=== PATIENT | female | born 1960 | race Caucasian/White ===

== ENCOUNTER 2018-01-29 01:26 | Inpatient (IN) | payer BC ==
[2018-01-29] MEDS ORDERED: hydrALAZINE 20 MG/ML VIAL ONE (02:29)
[2018-01-29] MEDS ORDERED: Morphine 4 MG/ML VIAL ONE (02:49)
[2018-01-29 03:11] LABS: PTT 27.3 SEC (22.9-36.1); Prothrombin Time 13.1 SEC (12.0-14.7)
[2018-01-29] MEDS ORDERED: HYDROcodone/Acetaminophen 5/325 mg Tablet ONE (03:23)
[2018-01-29 03:30] LABS: CKMB 5.7 ng/mL (0-6.6); Troponin I Less than 0.010 ng/mL (< 0.028)
[2018-01-29] MEDS ORDERED: Ondansetron HCl/PF 4 MG/2 ML Vial IVP PRN (06:08)
[2018-01-29] MEDS ORDERED: Ondansetron ODT 4 MG TAB SL PRN (06:08)
[2018-01-29] MEDS ORDERED: methylPREDNISolone Sod Succ/PF 125 MG/2 ML VIAL IVP SCH (08:15)
[2018-01-29] MEDS ORDERED: predniSONE 5 MG TAB PER TUBE SCH (08:15)
[2018-01-29] MEDS ORDERED: Albuterol Sulfate 2.5 mg/3 ml Neb NEB PRN (10:15)
[2018-01-29] MEDS ORDERED: Non-Formulary Item 1 EACH (Naproxen [Naproxen] 250 MG) PO PRN (10:23)
[2018-01-29] MEDS ORDERED: Naproxen 500 MG TAB PER TUBE PRN (10:37)
[2018-01-29] MEDS ORDERED: Pantoprazole 40 MG VIAL IVP SCH (10:45)
[2018-01-29 10:56] LABS: #Basophils 0.1 thou/uL (0.0-0.2); #Lymphocytes 0.2 thou/uL (1.20-3.40); #Monocytes 0.2 thou/uL (0.11-0.59); #Neutrophils 13.2 thou/uL (1.40-6.50); %Basophils 0.4 % (0.0-1.0); %Eosinophils 0.1 % (0.0-10.0); %Lymphocytes 1.3 % (21.0-51.0); %Monocytes 1.4 % (0.0-10.0); %Neutrophils 96.8 % (42.0-75.0); Hemoglobin 8.6 g/dL (12.0-16.0); Mean Corpuscular HGB CONC 31.9 g/dL (32.0-36.0); Mean Corpuscular Hemoglobin 27.8 pg (27.0-31.0); Mean Corpuscular Volume 86.9 fl (81.0-99.0); Mean Platelet Volume 6.4 fL (7.4-10.4); Platelet Count 397 thou/uL (130-400); RBC Distribution Width 16.8 % (11.5-14.5); Red Blood Cell (RBC) Count 3.09 mill/uL (4.20-5.40); White Blood Cell (WBC) Count 13.7 thou/uL (4.8-10.8)
[2018-01-29 11:27] LABS: ALT (SGPT) 19 U/L (8-55); AST (SGOT) 32 U/L (5-34); Albumin 3.7 g/dL (3.5-5.0); Alkaline Phosphatase 81 U/L (40-150); Anion Gap 14 mmol/L (10-20); BUN (Urea Nitrogen) 15 mg/dL (9.8-20.1); Bilirubin, Total 0.8 mg/dL (0.2-1.2); Calc. Creatinine Clearance 0 mL/min (70-130); Calcium 9.3 mg/dL (7.8-10.44); Carbon Dioxide 25 mmol/L (22-29); Chloride 94 mmol/L (98-107); Estimated GFR-MDRD Greater than 90; Globulin 2.4 g/dL (2.4-3.5); Glucose 61 mg/dL (70-105); Potassium 3.4 mmol/L (3.5-5.1); Protein, Total 6.1 g/dL (6.0-8.3); Sodium 130 mmol/L (136-145)
[2018-01-29] MEDS: Sodium Chloride 0.9% 1,000 ML IV SCH (11:50)
[2018-01-29 17:12] VITALS: BMI 14.5
[2018-01-29] MEDS: Mometasone/Formoterol 120 PUFF INHALER INH SCH (18:48)
[2018-01-29] MEDS ORDERED: Non-Formulary Item 1 EACH (Arginine/Ascorbate Sod/Vite Ac [Arginaid Powder] 1 PACKET) PER TUBE SCH (21:00)
[2018-01-29] MEDS ORDERED: Non-Formulary Item 1 EACH (Budesonide-Formoterol [Symbicort 160-4.5] 1 PUFF) INH SCH (21:00)
[2018-01-29] MEDS: Gabapentin 100 MG CAP FS SCH (21:20)
[2018-01-29] MEDS: Calcium Carbonate + Vit D 1 TAB PER TUBE SCH (21:20)
[2018-01-29] MEDS: Pantoprazole 40 MG VIAL IVP SCH (21:20)
[2018-01-30 04:27] LABS: Hemoglobin 8.3 g/dL (12.0-16.0)
[2018-01-30] MEDS: Sodium Chloride 0.9% 1,000 ML IV SCH ×3 (05:57→17:55)
[2018-01-30] MEDS: Levothyroxine Sodium 100 MCG TAB PER TUBE SCH (06:08)
[2018-01-30] MEDS: Arformoterol 15 MCG/2 ML NEB NEB SCH (06:26)
[2018-01-30] MEDS: Mometasone/Formoterol 120 PUFF INHALER INH SCH ×2 (06:29→18:08)
--- NOTE | 2018-01-30 07:38 | CON ---
DATE OF CONSULTATION: 01/29/2018 REASON FOR CONSULTATION: Anemia. HISTORY OF PRESENT ILLNESS: Ms. Briseno is a pleasant, 57-year-old female, who was very frail, she do es have PEG in. She was last admitted to this hospital last August, but she has been in the emergen cy room several times since then. She has a history of having a PEG tube in secondary to throat canc er and radiation stricture. She has had a history of COPD and chronic hyponatremia and anemia of chr onic disease. Baseline hemoglobin runs around 9-10, it was 9.9 in November. Apparently in the past eral days, she has been going to various hospitals with weakness and fatigue, and reportedly was foun d to have a hemoglobin of around 7.5 at [facility] in [place]. She is also a Hemoccu lt positive patient that she has been seeing some blood from her PEG tube at times mainly this has be en dark. She does take iron. Labs indicating hemoglobin 7.5 on 01/28/2018, white count 8.5, platele t count of 332, reports that her occult blood stool was positive as well. BNP was 1327. Comprehensi ve metabolic profile was otherwise normal except for that her BUN was 12 and creatinine was 0.3. Tro ponin T on 01/28/2018, was 23. Lipase was 84. D-dimer is 228. Presently here today, the patient conley s had no bleeding, no melena, no vomiting. There has been no blood from her feeding tube. Her hemog lobin here was 8.6. PAST MEDICAL HISTORY: Osteoporosis, COPD, hypothyroidism, throat cancer, chronic anemia. It is uncl ear if she has a coronary artery disease. She had a troponin that was elevated outside facility. Sh mima has an elevated BNP, which indicated may be she has a component of heart failure as well. She has had previous known anemia and has had endoscopies with Dr. Choi at the [facility] in 12/2016. Colonoscopy showed diverticulosis. EGD was unsuccessful. She has a very tight strictu re in the upper esophagus, and her stomach could not be visualized. ALLERGIES: LEVAQUIN. MEDICATIONS: Prednisone, Protonix or Prevacid, she is not sure, which she is on, gabapentin and lev othyroxine and citalopram. She denies taking any NSAIDs. Naprosyn. PHYSICAL EXAMINATION: GENERAL: She is resting comfortably in bed. VITAL SIGNS: Her pulse is 118, temperature is 97, pulse 18, blood pressure 165/95. LUNGS: Decreased breath sounds at bases. CARDIOVASCULAR: Regular rate and rhythm without clicks or murmurs. ABDOMEN: Soft, nontender. PEG tube site is warm and dry with no signs of active bleeding. LABORATORY DATA: White count was 13.7, hemoglobin 8.6, platelet count 397. Lipase is 203. Troponin was less than 0.01. CK-MB was 56. Sodium 130, potassium 3.4, BUN and creatinine are 15 and 0.49. It seems that she has not been transfused, it is unclear if she was transfused at outside facility. ASSESSMENT: 1. Chronic anemia, no signs of acute bleeding. 2. Slight drop in hemoglobin from baseline. She reports seeing dark-colored material in her gastric tube at times; however, she is on iron to make sure what to make of that. She does take PPI daily. She is on prednisone. She has risk factors for ulcer, were unable to reach her stomach with previou s known stricture in her esophagus and inability to complete an EGD last year. She is up-to-date on colon cancer screening and had only diverticulosis where she no need to repeat that at this time. RECOMMENDATIONS: 1. Monitor H&H. 2. Protonix 40 mg daily. 3. If she is stable from a cardiovascular standpoint tomorrow, we can consider an EGD and reevaluate whether we can take a look at her stomach or not. She does take Naprosyn. 4. I would also discontinue her NSAIDs, and NSAID with prednisone is probably not a good combination with increased risk of ulcer in this patient.
[2018-01-30] MEDS ORDERED: Levothyroxine Sodium 50 MCG TAB PER TUBE SCH (09:00)
[2018-01-30] MEDS ORDERED: Arformoterol 15 MCG/2 ML NEB NEB SCH (09:00)
[2018-01-30] MEDS: Nystatin Powder 15 GM BOT TOP SCH ×2 (09:00→20:46)
[2018-01-30] MEDS ORDERED: Non-Formulary Item 1 EACH (Prednisone [Prednisone] 10 MG) PER TUBE SCH (09:00)
[2018-01-30] MEDS ORDERED: Hydrocortisone Sod Succ/PF 100 mg/2 ml Vial ONE (09:19)
[2018-01-30] MEDS ORDERED: Morphine 4 MG/ML VIAL ONE (09:30)
[2018-01-30] MEDS ORDERED: Midazolam HCl 2 mg/2 ml Vial ONE (10:02)
--- NOTE | 2018-01-30 11:34 | OP ---
DATE OF PROCEDURE: 01/30/2018 SURGEON: Vazquez Ervin M.D. PREOPERATIVE DIAGNOSES: 1. Concern for possible gastrointestinal blood loss with some coffee-ground material from her PEG tu be and drop in hemoglobin 8.6 and stable today at 8.3. 2. Recent colonoscopy last year, nondiagnostic: 3. History of esophageal stricture. 4. History of trismus related to previous radiation therapy for throat cancer. The patient reports she was unable to get a bite block and to have an EGD at last attempt to dilate her esophageal strict ure by Dr. Choi. POSTOPERATIVE DIAGNOSES: 1. The patient cannot open her mouth wide enough to get a bite block in. We did use a syringe to do this, but still cannot open her mouth wide enough to get an EGD scope down. Therefore, we used a br onchoscope to perform a limited upper endoscopy. Her esophagus showed a stricture in the proximal es ophagus, although visualization is poor with the bronchoscope and cannot rule out malignancy, but it does appear benign. There is no bleeding sites in the esophagus. The proximal stomach could be reac hed, but the distal stomach could not. 2. At this point in time, the patient's PEG was removed. We performed a gastroscopy with the bronch oscope through her PEG tube tract. There was no blood in the stomach. Visualization was limited donta ewhat by the fact that there was no irrigation, it was difficult to control insufflation with this br onchoscope. This was the best we could do, however. 3. 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 I suspect this i s the source of her chronic anemia. Unfortunately, we cannot offer therapeutics through this broncho scope if the patient were to have a serious hemorrhage. 4. Prominent ampulla biopsied. 5. If the patient would have a serious hemorrhage, would consider intubation, although she is at hig h risk for airway complications as she has severe COPD and oxygen dependent. She would very likely r un the risk of being stuck on a ventilator, requiring tracheostomy and prolonged ICU stay. For this reason, we did not proceed down that path. RECOMMENDATIONS: 1. Continue IV PPI. 2. Avoid NSAIDs and anticoagulation. She is on prednisone routinely at home. She is on Naprosyn, i t would be reasonable to consider discontinuing this medication as even though she is on a PPI it is going to make her increased risk for bleeding. 3. If she were to have a serious upper GI hemorrhage she would have to be intubated to obtain a full sedated EGD which would be very high risk for her. 4. Alternatively an attempt could be made to dilate her PEG tube tract. However, with her chronic s teroids, I am afraid that may not close back down and she would have a persistent leak there. At thi s time, I would treat her very conservatively with the above noted recommendations. ANESTHESIA: TIVA. PROCEDURE IN DETAIL: After the patient was informed of the risks, benefits and possible complication s of endoscopy including perforation, reaction to medication and aspiration, informed consent was obt ained. The patient was brought to endoscopy suite where she was sedated gradually. She also had her throat numbed. She was awake through the procedure. Attempts as noted above were to get the diagno stic EGD scope through her teeth were unsuccessful. A bite block could not be placed and we were usi ng a 5 mL syringe as a bite block. Therefore, we switched to the bronchoscope and we were able to ev aluate the esophagus in a limited fashion to the proximal stomach. There was a stricture in the uppe r esophagus. This appears to be benign, but visualization was poor with the bronchoscope because lac k of irrigation and washing. This has been a known stricture that has been visualized before and has been benign in the past and it was felt to be radiation related. The scope was then removed. The patient's PEG tube was then desufflated and removed. The bronchoscope was advanced through her P EG tube tract into the stomach. We evaluated the remainder of the stomach with a little bit of heme staining, but no overt ulcers or lesions. There were a few small fundic gland polyps which were not biopsied or removed due to limited ability to active ____ the bronchoscope, my concern was that if sh e were to have any bleeding we would not be able to control it through the bronchoscope. We were abl e to introduce the scope in the duodenum, to second and third portions. Multiple small AVMs that wer e nonbleeding were noted. There was a prominent ampulla which was biopsied. It did not appear malig nant, it may be adenomatous. The scope was then removed and the PEG tube was replaced and the balloo n was resufflated. The patient tolerated the procedure well and was brought to recovery in stable co ndition.
[2018-01-30] MEDS: Pantoprazole 40 MG VIAL IVP SCH ×2 (11:45→20:46)
[2018-01-30] MEDS: Gabapentin 100 MG CAP FS SCH ×2 (11:46→20:47)
[2018-01-30] MEDS: predniSONE 5 MG TAB PER TUBE SCH (11:46)
[2018-01-30] MEDS: Calcium Carbonate + Vit D 1 TAB PER TUBE SCH ×2 (11:46→20:47)
[2018-01-30] MEDS: Citalopram 10 MG TAB PER TUBE SCH (11:46)
[2018-01-30] MEDS: HYDROcodone/Acetaminophen 5/325 mg Tablet PER TUBE PRN ×2 (13:09→20:49)
--- NOTE | 2018-01-30 13:17 | PDOC.PN ---
- Subjective Encounter Start Date: 01/30/18 Encounter Start Time: 13:30 follow up for melena, ABLA. seen by GI, EGD today no F/c, no N/V/d/c. pain better controlled, resp distress resolved All systems reviewed and neg x as above - Objective Resuscitation Status: Resuscitation Status FULL:Full Resuscitation MAR Reviewed: Yes Vital Signs & Weight: Vital Signs (12 hours) Temp Pulse Resp BP Pulse Ox 01/30/18 08:37 98.4 F 101 H 12 152/85 H 99 01/30/18 08:00 98.4 F 101 H 12 99 01/30/18 06:26 111 H 16 99 01/30/18 05:23 98.5 F 107 H 18 162/86 H 99 01/30/18 02:08 99 Weight Admit Weight 74 lb 8 oz Weight 74 lb 8 oz Result Diagrams: 01/30/18 04:08 01/29/18 10:40 Radiology Reviewed by me: Yes Phys Exam - Physical Examination Constitutional: NAD HEENT: PERRLA, moist MMs, sclera anicteric, oral pharynx no lesions Neck: no nodes, no JVD, supple, full ROM Respiratory: no wheezing, no rales, no rhonchi Cardiovascular: RRR, no significant murmur, no rub Gastrointestinal: soft, non-tender, no distention, positive bowel sounds PEG C/D/I Musculoskeletal: edema present Neurological: non-focal, normal sensation, moves all 4 limbs Lymphatic: no nodes Psychiatric: normal affect, A&O x 3 Skin: no rash, normal turgor, cap refill <2 seconds Dx/Plan - Plan * .
--- NOTE | 2018-01-30 14:42 | PDOC.PN ---
- Subjective Encounter Start Date: 01/30/18 Encounter Start Time: 10:50 PT sleepy after EGD. Findings discussed with GI. No F/C reported, no N/V/d/C, no acute events ROs not obtainable due to post op sedation - Objective Resuscitation Status: Resuscitation Status FULL:Full Resuscitation MAR Reviewed: Yes Vital Signs & Weight: Vital Signs (12 hours) Temp Pulse Resp BP Pulse Ox 01/30/18 08:37 98.4 F 101 H 12 152/85 H 99 01/30/18 08:00 98.4 F 101 H 12 99 01/30/18 06:26 111 H 16 99 01/30/18 05:23 98.5 F 107 H 18 162/86 H 99 Weight Admit Weight 74 lb 8 oz Weight 74 lb 8 oz Result Diagrams: 01/30/18 04:08 01/29/18 10:40 Phys Exam - Physical Examination Constitutional: NAD HEENT: PERRLA, moist MMs, sclera anicteric, oral pharynx no lesions Neck: no nodes, no JVD, supple, full ROM Respiratory: no wheezing, no rales, no rhonchi, clear to auscultation bilateral Cardiovascular: RRR, no significant murmur, no rub Gastrointestinal: soft, non-tender, no distention, positive bowel sounds Musculoskeletal: no edema, pulses present Lymphatic: no nodes Skin: no rash, normal turgor, cap refill <2 seconds Dx/Plan (1) UGI bleed Code(s): K92.2 - GASTROINTESTINAL HEMORRHAGE, UNSPECIFIED Status: Acute (2) Acute blood loss anemia Code(s): D62 - ACUTE POSTHEMORRHAGIC ANEMIA Status: Acute (3) Rheumatoid arthritis Code(s): M06.9 - RHEUMATOID ARTHRITIS, UNSPECIFIED Status: Chronic Qualifiers: Rheumatoid arthritis location: multiple sites Rheumatoid factor presence: unspecified presence Qualified Code(s): M06.9 - Rheumatoid arthritis, unspecified (4) COPD (chronic obstructive pulmonary disease) Status: Chronic Qualifiers: COPD type: unspecified COPD Qualified Code(s): J44.9 - Chronic obstructive pulmonary disease, unspecified (5) Hypothyroidism Code(s): E03.9 - HYPOTHYROIDISM, UNSPECIFIED Status: Chronic Qualifiers: Hypothyroidism type: acquired Qualified Code(s): E03.9 - Hypothyroidism, unspecified (6) History of pharyngeal cancer Code(s): Z85.819 - PRSNL HX OF MALIG NEOPLM OF UNSP SITE LIP,ORAL CAV,& PHARYNX Status: Resolved (7) Hyponatremia Code(s): E87.1 - HYPO-OSMOLALITY AND HYPONATREMIA Status: Acute - Plan cont current plan of care * . AVMs in small bowel, avoid NSAID, continue PPI. home in 1-2 days
[2018-01-30] MEDS: traMADol HCl 50 MG TAB PER TUBE PRN (20:49)
[2018-01-31] MEDS: traMADol HCl 50 MG TAB PER TUBE PRN (04:23)
[2018-01-31] MEDS: Levothyroxine Sodium 100 MCG TAB PER TUBE SCH (04:24)
[2018-01-31] MEDS: HYDROcodone/Acetaminophen 5/325 mg Tablet PER TUBE PRN ×3 (04:24→19:54)
[2018-01-31] MEDS: Sodium Chloride 0.9% 1,000 ML IV SCH (04:28)
[2018-01-31 04:48] LABS: #Lymphocytes 0.5 thou/uL (1.20-3.40); #Monocytes 0.8 thou/uL (0.11-0.59); #Neutrophils 6.1 thou/uL (1.40-6.50); %Basophils 0.3 % (0.0-1.0); %Eosinophils 0.2 % (0.0-10.0); %Lymphocytes 6.8 % (21.0-51.0); %Monocytes 10.5 % (0.0-10.0); %Neutrophils 82.2 % (42.0-75.0); Hemoglobin 6.8 g/dL (12.0-16.0); Mean Corpuscular HGB CONC 31.7 g/dL (32.0-36.0); Mean Corpuscular Hemoglobin 27.4 pg (27.0-31.0); Mean Corpuscular Volume 86.3 fl (81.0-99.0); Mean Platelet Volume 6.4 fL (7.4-10.4); Platelet Count 331 thou/uL (130-400); RBC Distribution Width 16.3 % (11.5-14.5); Red Blood Cell (RBC) Count 2.49 mill/uL (4.20-5.40); White Blood Cell (WBC) Count 7.5 thou/uL (4.8-10.8)
[2018-01-31 05:11] LABS: Anion Gap 8 mmol/L (10-20); BUN (Urea Nitrogen) 14 mg/dL (9.8-20.1); Calc. Creatinine Clearance 71 mL/min (70-130); Calcium 8.7 mg/dL (7.8-10.44); Carbon Dioxide 29 mmol/L (22-29); Chloride 96 mmol/L (98-107); Estimated GFR-MDRD Greater than 90; Glucose 87 mg/dL (70-105); Magnesium 1.5 mg/dL (1.6-2.6); Potassium 3.2 mmol/L (3.5-5.1); Sodium 130 mmol/L (136-145)
[2018-01-31] MEDS: Arformoterol 15 MCG/2 ML NEB NEB SCH (06:06)
[2018-01-31] MEDS: Mometasone/Formoterol 120 PUFF INHALER INH SCH ×2 (06:07→18:10)
[2018-01-31] MEDS: Pantoprazole 40 MG VIAL IVP SCH ×2 (08:48→19:55)
[2018-01-31] MEDS: predniSONE 5 MG TAB PER TUBE SCH (08:49)
[2018-01-31] MEDS: Gabapentin 100 MG CAP FS SCH ×2 (08:49→19:55)
[2018-01-31] MEDS: Calcium Carbonate + Vit D 1 TAB PER TUBE SCH ×2 (08:49→19:54)
[2018-01-31] MEDS: Citalopram 10 MG TAB PER TUBE SCH (08:49)
[2018-01-31] MEDS: Nystatin Powder 15 GM BOT TOP SCH ×2 (08:50→19:55)
[2018-01-31] MEDS ORDERED: Magnesium 2 GM/NS 0.9% 100 ML 2 GM in Premix Bag 1 BAG IVPB SCH (12:00)
--- NOTE | 2018-01-31 12:51 | PDOC.PN ---
- Subjective Encounter Start Date: 01/31/18 Encounter Start Time: 12:00 Patient seen and examined for GI bleeding. No new episodes. No new complaints. No overnight events - Objective Resuscitation Status: Resuscitation Status FULL:Full Resuscitation MAR Reviewed: Yes Vital Signs & Weight: Vital Signs (12 hours) Temp Pulse Resp BP Pulse Ox 01/31/18 12:33 95 14 99 01/31/18 08:00 97.8 F 95 18 99 01/31/18 07:39 97.8 F 95 18 134/62 99 01/31/18 06:07 91 16 100 01/31/18 06:06 91 16 100 01/31/18 06:05 91 16 100 Weight Admit Weight 74 lb 8 oz Weight 74 lb 8 oz I&O: 01/30/18 01/31/18 02/01/18 06:59 06:59 06:59 Intake Total 240 Balance 240 Result Diagrams: 01/31/18 03:47 01/31/18 03:47 Phys Exam - Physical Examination Constitutional: NAD Respiratory: no wheezing, no rhonchi Cardiovascular: RRR, no rub Gastrointestinal: soft, non-tender, positive bowel sounds PEG present Musculoskeletal: no edema Neurological: moves all 4 limbs Dx/Plan (1) UGI bleed Code(s): K92.2 - GASTROINTESTINAL HEMORRHAGE, UNSPECIFIED Status: Acute Comment: s/p EGD - AVMs (2) Acute blood loss anemia Code(s): D62 - ACUTE POSTHEMORRHAGIC ANEMIA Status: Acute (3) Protein-calorie malnutrition, moderate Code(s): E44.0 - MODERATE PROTEIN-CALORIE MALNUTRITION Status: Acute (4) Electrolyte abnormality Code(s): E87.8 - OTH DISORDERS OF ELECTROLYTE AND FLUID BALANCE, NEC Status: Acute Comment: Hyponatremia, Hypokalemia, Hypomagnessemia (5) COPD (chronic obstructive pulmonary disease) Status: Chronic Qualifiers: COPD type: unspecified COPD Qualified Code(s): J44.9 - Chronic obstructive pulmonary disease, unspecified - Plan DVT proph w/SCDs Transfuse 1 unit PRBC -: Replace Potassium and Magnessium -: AM labs -: Cont to monitor Review of Systems - Medications/Allergies Allergies/Adverse Reactions: Allergies Allergy/AdvReac Type Severity Reaction Status Date / Time levofloxacin [From Lev[facility]] Allergy Verified 01/29/18 06:07 Medications: Current Medications Hydrocodone Bitart/Acetaminophen ([place] 5/325) 1 tab PER TUBE Q4H PRN PRN Reason: Pain Last Admin: 01/31/18 04:24 Dose: 1 tab Albuterol Sulfate (Ventolin) 2.5 mg NEB Q2H PRN PRN Reason: Wheezing Albuterol/Ipratropium (Duoneb) 3 ml NEB [id number] [facility] Last Admin: 01/31/18 12:33 Dose: 3 ml Arformoterol Tartrate (Brovana) 15 mcg NEB DAILY-RT [facility] Last Admin: 01/31/18 06:06 Dose: 15 mcg Calcium/Vitamin D (Caltrate 600 + Vit D) 1 tab PER TUBE BID [facility] Last Admin: 01/31/18 08:49 Dose: 1 tab Citalopram Hydrobromide (Celexa) 10 mg PER TUBE DAILY [facility] Last Admin: 01/31/18 08:49 Dose: 10 mg Gabapentin (Neurontin) 100 mg FS BID [facility] Last Admin: 01/31/18 08:49 Dose: 100 mg Magnesium Sulfate 2 gm/ Device 100 mls @ 100 mls/hr IVPB NOW [facility] Stop: 01/31/18 14:00 Potassium Chloride/Sodium Chloride (Ns 0.9% W/ 40 Meq Kcl) 1,000 mls @ 75 mls/ hr IV .[id number] [facility] Levothyroxine Sodium (Synthroid) 100 mcg PER TUBE 0600 [facility] Last Admin: 01/31/18 04:24 Dose: 100 mcg Mometasone Furoate/Formoterol Fumar (Dulera 200 Mcg/5 Mcg Inhaler) 1 puff INH BID-RT [facility] Last Admin: 01/31/18 06:07 Dose: 1 puff Morphine Sulfate (Morphine) 2 mg SLOW IVP Q3H PRN PRN Reason: Breakthrough Pain Last Admin: 01/31/18 09:05 Dose: 2 mg Nystatin (Mycostatin Powder) 0 gm TOP BID [facility] Last Admin: 01/31/18 08:50 Dose: 1 applic Ondansetron HCl (Zofran) 4 mg PO Q4H PRN PRN Reason: Nausea/Vomiting Pantoprazole Sodium (Protonix) 40 mg IVP Q12HR [facility] Last Admin: 01/31/18 08:48 Dose: 40 mg Prednisone (Prednisone) 10 mg PER TUBE DAILY [facility] Last Admin: 01/31/18 08:49 Dose: 10 mg Sodium Chloride (Flush - Normal Saline) 10 ml IVF Q12HR [facility] Last Admin: 01/31/18 08:48 Dose: 10 ml Sodium Chloride (Flush - Normal Saline) 10 ml IVF PRN PRN PRN Reason: Saline Flush Tramadol HCl (Ultram) 100 mg PER TUBE TID PRN PRN Reason: Pain Last Admin: 01/31/18 04:23 Dose: 100 mg
[2018-01-31] MEDS: NS 0.9% w/ 40 MEQ KCL 1,000 ML IV SCH (13:05)
[2018-01-31] MEDS ORDERED: diphenhydrAMINE 12.5 MG/5 ML UDCUP PO PRN (13:26)
[2018-01-31] MEDS ORDERED: Acetaminophen 650 MG/20.3 ML UDCUP PO PRN (13:26)
[2018-01-31] MEDS ORDERED: diphenhydrAMINE 25 MG CAP PO PRN (13:26)
[2018-01-31] MEDS ORDERED: Acetaminophen 325 MG TAB PO PRN (13:26)
[2018-02-01] MEDS: traMADol HCl 50 MG TAB PER TUBE PRN ×2 (01:32→13:37)
[2018-02-01 04:47] LABS: Hemoglobin 8.5 g/dL (12.0-16.0); Platelet Count 296 thou/uL (130-400)
[2018-02-01 05:14] LABS: Albumin 3.4 g/dL (3.5-5.0); Anion Gap 7 mmol/L (10-20); BUN (Urea Nitrogen) 7 mg/dL (9.8-20.1); BUN/Creatinine Ratio 15.91; Calc. Creatinine Clearance 76 mL/min (70-130); Calcium 8.9 mg/dL (7.8-10.44); Carbon Dioxide 31 mmol/L (22-29); Chloride 97 mmol/L (98-107); Estimated GFR-MDRD Greater than 90; Glucose 72 mg/dL (70-105); Magnesium 1.8 mg/dL (1.6-2.6); Phosphorus 2.2 mg/dL (2.3-4.7); Potassium 4.1 mmol/L (3.5-5.1); Sodium 131 mmol/L (136-145)
[2018-02-01] MEDS: Arformoterol 15 MCG/2 ML NEB NEB SCH (05:51)
[2018-02-01] MEDS: Mometasone/Formoterol 120 PUFF INHALER INH SCH ×2 (05:53→18:08)
[2018-02-01] MEDS: NS 0.9% w/ 40 MEQ KCL 1,000 ML IV SCH ×3 (06:10→20:54)
[2018-02-01] MEDS: HYDROcodone/Acetaminophen 5/325 mg Tablet PER TUBE PRN ×3 (06:10→21:03)
[2018-02-01] MEDS: Levothyroxine Sodium 100 MCG TAB PER TUBE SCH (06:10)
[2018-02-01] MEDS: Gabapentin 100 MG CAP FS SCH ×2 (08:02→20:53)
[2018-02-01] MEDS: predniSONE 5 MG TAB PER TUBE SCH (08:02)
[2018-02-01] MEDS: Citalopram 10 MG TAB PER TUBE SCH ×2 (08:02→20:53)
[2018-02-01] MEDS: Calcium Carbonate + Vit D 1 TAB PER TUBE SCH ×2 (08:03→20:53)
[2018-02-01] MEDS: Pantoprazole 40 MG VIAL IVP SCH ×2 (08:03→20:53)
[2018-02-01] MEDS: Nystatin Powder 15 GM BOT TOP SCH ×2 (08:03→20:53)
--- NOTE | 2018-02-01 15:31 | PRG ---
DATE OF SERVICE: 02/01/2018 SUBJECTIVE: Ms. Briseno states that the only thing bothering her is her foot that is hurting from whe n she fell before this admission. She had one small bowel movement today that was dark. She had two yesterday. OBJECTIVE: VITAL SIGNS: Temperature is 98, pulse 87, respirations 15, O2 sat 99%, and blood pressure 159/84. ABDOMEN: Soft, nontender. GENERAL: She is frail. LABORATORY STUDIES: Hemoglobin today is 8.5 after 2 units of blood yesterday for hemoglobin of 6.8. ASSESSMENT: 1. Gastrointestinal bleeding, likely related to arteriovenous malformations, possibly NSAIDs. No ac tive bleeding site identified at time of a very limited upper endoscopy that was performed with the b ronchoscope secondary to her severe trismus and neck mobility from previous radiation therapy. 2. History of esophageal stricture with PEG tube in place, unable to dilate the stricture and unable to get the scope down her throat because of her severe trismus from previous radiation therapy, this has been chronic and experience with previous attempts of endoscopy. 3. Protuberant ampulla biopsied. Biopsy is pending. RECOMMENDATIONS: 1. Continue PPIs. 2. Avoid NSAIDs. We would check another hemoglobin tomorrow. If she shows any signs of acute bleed ing, we will check one today. We will continue to follow.
--- NOTE | 2018-02-01 19:52 | PDOC.PN ---
- Subjective Encounter Start Date: 02/01/18 Encounter Start Time: 12:00 Patient seen and examined for GI bleeding. Feels gen weak. No new complaints. No overnight events - Objective Resuscitation Status: Resuscitation Status FULL:Full Resuscitation MAR Reviewed: Yes Vital Signs & Weight: Vital Signs (12 hours) Temp Pulse Resp BP Pulse Ox 02/01/18 18:06 77 16 100 02/01/18 15:00 98.4 F 93 15 156/79 H 99 02/01/18 12:18 81 14 97 02/01/18 11:17 98.7 F 87 15 159/84 H 99 02/01/18 08:00 98.2 F 84 16 100 Weight Admit Weight 74 lb 8 oz Weight 74 lb 8 oz I&O: 01/31/18 02/01/18 02/02/18 06:59 06:59 06:59 Intake Total 240 1610 Balance 240 1610 Result Diagrams: 02/02/18 03:57 02/02/18 03:57 Phys Exam - Physical Examination Constitutional: NAD Respiratory: no wheezing, no rhonchi Cardiovascular: RRR, no rub Gastrointestinal: soft, non-tender, positive bowel sounds PEG tube site - no erythema Musculoskeletal: no edema Dx/Plan (1) UGI bleed Code(s): K92.2 - GASTROINTESTINAL HEMORRHAGE, UNSPECIFIED Status: Acute Comment: s/p EGD - AVMs (2) Acute blood loss anemia Code(s): D62 - ACUTE POSTHEMORRHAGIC ANEMIA Status: Acute Comment: s/p 1 unit PRBC (3) Protein-calorie malnutrition, moderate Code(s): E44.0 - MODERATE PROTEIN-CALORIE MALNUTRITION Status: Acute (4) Electrolyte abnormality Code(s): E87.8 - OTH DISORDERS OF ELECTROLYTE AND FLUID BALANCE, NEC Status: Acute Comment: Hyponatremia, Hypokalemia, Hypomagnessemia (5) COPD (chronic obstructive pulmonary disease) Status: Chronic Qualifiers: COPD type: unspecified COPD Qualified Code(s): J44.9 - Chronic obstructive pulmonary disease, unspecified - Plan DVT proph w/SCDs Cont IVF, Cont current meds as below -: Increase Celexa - risk discussed - Patient stated understanding -: AM labs -: Monitor HH -: DC in 24 hr if Hb stable Review of Systems - Review of Systems Respiratory: negative: Cough, Dry, Shortness of Breath, Hemoptysis, SOB with Excertion, Pleuritic Pain, Sputum, Wheezing Cardiovascular: negative: chest pain, palpitations, orthopnea, paroxysmal nocturnal dyspnea, edema, light headedness, other Gastrointestinal: negative: Nausea, Vomiting, Abdominal Pain, Diarrhea, Constipation, Melena, Hematochezia, Other - Medications/Allergies Allergies/Adverse Reactions: Allergies Allergy/AdvReac Type Severity Reaction Status Date / Time [facility]oxacin [[facility]] Allergy Verified 01/29/18 06:07 Medications: Current Medications Acetaminophen (Tylenol) 650 mg PO Q4H PRN PRN Reason: Headache/Fever or Mild Pain Acetaminophen (Tylenol Elixir) 650 mg PO Q4H PRN PRN Reason: pain/fever Last Admin: 01/31/18 14:39 Dose: 650 mg Hydrocodone Bitart/Acetaminophen ([place] 5/325) 1 tab PER TUBE Q4H PRN PRN Reason: Pain Last Admin: 02/01/18 13:38 Dose: 1 tab Albuterol Sulfate (Ventolin) 2.5 mg NEB Q2H PRN PRN Reason: Wheezing Albuterol/Ipratropium (Duoneb) 3 ml NEB [id number] [facility] Last Admin: 02/01/18 18:06 Dose: 3 ml Arformoterol Tartrate (Brovana) 15 mcg NEB DAILY-RT [facility] Last Admin: 02/01/18 05:51 Dose: 15 mcg Calcium/Vitamin D (Caltrate 600 + Vit D) 1 tab PER TUBE BID [facility] Last Admin: 02/01/18 08:03 Dose: 1 tab Citalopram Hydrobromide (Celexa) 10 mg PER TUBE BID [facility] Diphenhydramine HCl (Benadryl) 25 mg PO Q6H PRN PRN Reason: Itching & Insomnia Diphenhydramine HCl (Benadryl) 25 mg PO Q8H PRN PRN Reason: Itching Last Admin: 01/31/18 14:39 Dose: 25 mg Docusate Sodium (Colace) 100 mg PO DAILY [facility] Gabapentin (Neurontin) 100 mg FS BID [facility] Last Admin: 02/01/18 08:02 Dose: 100 mg Potassium Chloride/Sodium Chloride (Ns 0.9% W/ 40 Meq Kcl) 1,000 mls @ 75 mls/ hr IV .[id number] [facility] Last Admin: 02/01/18 15:18 Dose: Not Given Levothyroxine Sodium (Synthroid) 100 mcg PER TUBE 0600 [facility] Last Admin: 02/01/18 06:10 Dose: 100 mcg Miscellaneous Medication (Phos-Nak) 1 pkt PO BID-WM [facility] Last Admin: 02/01/18 16:55 Dose: 1 pkt Mometasone Furoate/Formoterol Fumar (Dulera 200 Mcg/5 Mcg Inhaler) 1 puff INH BID-RT [facility] Last Admin: 02/01/18 18:08 Dose: 1 puff Morphine Sulfate (Morphine) 2 mg SLOW IVP Q3H PRN PRN Reason: Breakthrough Pain Last Admin: 02/01/18 10:45 Dose: 2 mg Nystatin (Mycostatin Powder) 0 gm TOP BID [facility] Last Admin: 02/01/18 08:03 Dose: 1 applic Ondansetron HCl (Zofran) 4 mg PO Q4H PRN PRN Reason: Nausea/Vomiting Pantoprazole Sodium (Protonix) 40 mg IVP Q12HR [facility] Last Admin: 02/01/18 08:03 Dose: 40 mg Prednisone (Prednisone) 10 mg PER TUBE DAILY [facility] Last Admin: 02/01/18 08:02 Dose: 10 mg Sodium Chloride (Flush - Normal Saline) 10 ml IVF Q12HR [facility] Last Admin: 02/01/18 08:13 Dose: 10 ml Sodium Chloride (Flush - Normal Saline) 10 ml IVF PRN PRN PRN Reason: Saline Flush Tramadol HCl (Ultram) 100 mg PER TUBE TID PRN PRN Reason: Pain Last Admin: 02/01/18 13:37 Dose: 100 mg
[2018-02-02] MEDS: HYDROcodone/Acetaminophen 5/325 mg Tablet PER TUBE PRN ×2 (00:40→14:13)
[2018-02-02 04:26] LABS: Hemoglobin 9.1 g/dL (12.0-16.0); Platelet Count 311 thou/uL (130-400)
[2018-02-02 04:40] LABS: Albumin 3.5 g/dL (3.5-5.0); Anion Gap 10 mmol/L (10-20); BUN (Urea Nitrogen) 5 mg/dL (9.8-20.1); BUN/Creatinine Ratio 10.87; Calc. Creatinine Clearance 73 mL/min (70-130); Calcium 9.1 mg/dL (7.8-10.44); Carbon Dioxide 31 mmol/L (22-29); Chloride 93 mmol/L (98-107); Estimated GFR-MDRD Greater than 90; Glucose 74 mg/dL (70-105); Magnesium 1.5 mg/dL (1.6-2.6); Phosphorus 3.1 mg/dL (2.3-4.7); Potassium 4.1 mmol/L (3.5-5.1); Sodium 130 mmol/L (136-145)
[2018-02-02] MEDS: traMADol HCl 50 MG TAB PER TUBE PRN (05:38)
[2018-02-02] MEDS: Levothyroxine Sodium 100 MCG TAB PER TUBE SCH (05:38)
[2018-02-02] MEDS: Arformoterol 15 MCG/2 ML NEB NEB SCH (07:00)
[2018-02-02] MEDS: Mometasone/Formoterol 120 PUFF INHALER INH SCH (07:01)
[2018-02-02 07:27] VITALS: BP 159/87; TEMP 98.6
[2018-02-02] MEDS ORDERED: Magnesium 2 GM/NS 0.9% 100 ML 2 GM in Premix Bag 1 BAG IVPB SCH (07:30)
[2018-02-02] MEDS: Pantoprazole 40 MG VIAL IVP SCH (08:10)
[2018-02-02] MEDS ORDERED: Docusate 100 MG CAP PO SCH (09:00)
[2018-02-02] MEDS: Gabapentin 100 MG CAP FS SCH (09:15)
[2018-02-02] MEDS: Citalopram 10 MG TAB PER TUBE SCH (09:15)
[2018-02-02] MEDS: Calcium Carbonate + Vit D 1 TAB PER TUBE SCH (09:15)
[2018-02-02] MEDS: predniSONE 5 MG TAB PER TUBE SCH (09:15)
[2018-02-02] MEDS: Nystatin Powder 15 GM BOT TOP SCH (09:16)
--- NOTE | 2018-02-02 19:22 | PRG ---
DATE OF SERVICE: 02/02/2018 SUBJECTIVE: Ms. Briseno had brown stools. PHYSICAL EXAMINATION: VITAL SIGNS: Temperature is 98, pulse 87, blood pressure 159/87. ABDOMEN: Soft, nontender. LABORATORY DATA: Hemoglobin is 9.1 ASSESSMENT: 1. Admission with anemia and reported melena. She does have some arteriovenous malformations in her duodenum which were nonbleeding. We were unable to cauterize any of these secondary to her severe t rismus and inability to advance an EGD scope through her mouth and the exam was carried out with the bronchoscope. 2. There was a prominent ampulla which was biopsied and appeared normal. 3. She has had a history of using chronic NSAIDs. This needs to stop. RECOMMENDATIONS: Stop meloxicam at home, it was not listed in her home medications in the computer, but it was in her bag. She does want to have PPI. She can continue the one she uses at home. She may need some Neurontin for pain. At this time, she can go home from a GI standpoint. We will sign off.
--- NOTE | 2018-02-03 09:06 | DIS ---
DATE OF DISCHARGE: 02/02/2018 DISCHARGE DISPOSITION: Home. FOLLOWUP: Follow up with primary care physician, Dr. Sena in 1 week. Follow up with Gastroenterol ogy, Dr. Ervin as outpatient in next 2 weeks. DISCHARGE MEDICATIONS: Celexa dose was increased from 10 mg daily to 10 mg twice a day. All other h ome medications were left unchanged. She was advised to discontinue NSAIDs. INPATIENT CONSULTANTS: Gastroenterology, Dr. Ervin. The patient was seen and examined on the day of discharge, denies any new complaints, no chest pain, shortness of breath, palpitations or new gastrointestinal bleeding. SIGNIFICANT LABORATORY DATA: Lowest hemoglobin was 6.8, at discharge 9.1. Potassium 3.2, replaced. Magnesium 1.5, replaced. Sodium 130 on the day of discharge. Blood cultur es were negative. INPATIENT PROCEDURES: The patient underwent EGD on 01/30/2018. It showed multiple AVMs in the duode num. Ampulla was prominent and was biopsied. BRIEF HOSPITAL COURSE: The patient is a 57-year-old female with throat cancer status post PEG tube, presented to the hospital with GI bleeding. She was found to have hemoglobin of 7.5 with stool for o ccult blood was positive. Her sodium in the emergency room was 125. Please refer to the history and physical for further details. The patient was admitted to the hospital with a diagnosis of GI bleeding. She received 1 unit of PRB C for hemoglobin of 6.8. She also had electrolyte imbalances that were more or less replaced. She p robably has chronic hyponatremia. Her sodium has stabilized at 130. She was placed on IV PPIs that has been changed to p.o. She was advised to continue Nexium twice a day. She will follow up with GI Clinic as outpatient. FINAL DIAGNOSES: 1. Gastrointestinal bleeding. 2. 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 3. Prominent ampulla on EGD, biopsy was normal. 4. Chronic nonsteroidal anti-inflammatory drug use. The patient was advised to discontinue. 5. History of throat cancer, status post percutaneous endoscopic gastrostomy tube. 6. Hypothyroidism. 7. Chronic obstructive pulmonary disease. 8. Chronic anemia. 9. Electrolyte imbalance. The patient has hyponatremia, hypokalemia, hypophosphatemia and hypomagne semia. 10. Moderate protein calorie malnutrition. 11. LEVAQUIN allergy. Plan of care was discussed with the patient in detail. She stated understanding.
== END 2018-02-02 15:40 | disposition home or self-care (01) | DRG 378 ==
LOC: ERS 01:26 → T4-A 04:30
PROVIDERS: ADMIT Internal Medicine; ATTEND Internal Medicine
PROC: 0DB98ZX Excision of Duodenum, Via Natural or Artificial Opening Endoscopic, Diagnostic (ICD-10-PCS; principal; 2018-01-30)
DX: K31.811 Angiodysplasia of stomach and duodenum with bleeding (principal); D62 Acute posthemorrhagic anemia; E87.1 Hypo-osmolality and hyponatremia; E44.0 Moderate protein-calorie malnutrition; Z68.1 Body mass index [BMI] 19.9 or less, adult; Z79.1 Long term (current) use of non-steroidal anti-inflammatories (NSAID); E03.9 Hypothyroidism, unspecified; E87.6 Hypokalemia; E83.39 Other disorders of phosphorus metabolism; E83.42 Hypomagnesemia; J44.9 Chronic obstructive pulmonary disease, unspecified; Z85.819 Personal history of malignant neoplasm of unspecified site of lip, oral cavity, and pharynx; D63.8 Anemia in other chronic diseases classified elsewhere; R74.8 Abnormal levels of other serum enzymes; M81.0 Age-related osteoporosis without current pathological fracture; Z87.891 Personal history of nicotine dependence
CPT/HCPCS: 36415; 36430; 80048; 80053; 80069; 82553; 83690; 83735; 84484; 85014; 85018; 85025; 85049; 85610; 85730; 86850; 86870; 86900; 86901; 86922; 87040; 88305; 94640; 96374; 96375; A4216; C9113; J0360; J1720; J2250; J2270; J2930; J3475; J7620; P9016